=== PATIENT | female | born 1940 | race Caucasian/White ===

== ENCOUNTER → 2017-08-26 | Outpatient (CLI) | payer MEDICARE, BC ==
[~2017-08-26] MED LIST: CARDIZEM LA240 MG PO; HYZAAR 50-12.51 EACH PO; NEXIUM20 M1 PO; ZOCOR10 MG PO
--- NOTE | 2017-08-26 08:38 | Diagnostic Imaging Report ---
CORRECTION Corrected on: 08/26/2017; Dictated by: Todd Navarro M.D. on 08/26/2017 at 8:41 Electronically approved by: Todd Navarro M.D. on 08/26/2017 at 8:41 PROCEDURE:US RETROPERITONEAL ( KIDNEY ). COMPARISON:Patients [facility], [place], US RETROPERITONEAL ( KIDNEY )., 08/25/2016, 8:14. Patients [facility], [place], US RETROPERITONEAL ( KIDNEY )., 01/10/2016, 8:20. Patients [facility], [place], US RETROPERITONEAL ( KIDNEY )., 12/04/2014, 8:07. INDICATIONS:Cyst Of Kidney TECHNIQUE: Perez scale color Doppler ultrasound FINDINGS: Right: 10 x 4.8 x 4.7 cm. Cortical thickness 1.2 cm. Left: 10.6 x 5.9 x 5.1 cm. Cortical thickness 1.1 cm. Both kidneys demonstrate mildly increased echogenicity consistent with chronic renal disease. No mass or stone. No hydronephrosis. Simple cyst: Right anechoic 1.2 x 1.1 x 1.2 cm (previously 0.9 x 0.7 x 0.9 cm) Left anechoic 1.1 x 1.3 x 1.3 cm (previously 1.3 x 1.2 x 1.6 cm) Survey views of the urinary bladder are normal. Patent ureters. CONCLUSION: 1. Left renal cyst continues to decrease in size. 2. Right renal cyst is stable given differences in technique. Dictated by: Todd Navarro M.D. on 08/26/2017 at 8:40 Electronically approved by: Todd Navarro M.D. on 08/26/2017 at 8:40
== END ==
LOC: US 07:30
PROVIDERS: ATTEND Urology
DX: N28.1 Cyst of kidney, acquired (principal)
CPT/HCPCS: 76770

== ENCOUNTER → 2018-08-30 | Outpatient (CLI) | payer MEDICARE, BC ==
--- NOTE | 2018-08-30 11:16 | Diagnostic Imaging Report ---
Renal ultrasound. History: Renal cyst Comparison: 08/26/2017 Discussion: Transverse and longitudinal images of the kidneys were obtained demonstrating normal renal sizes and echogenicities. There is no evidence of hydronephrosis, mass or renal calculus. The right kidney measures 9.5 x 4.9 x 4.0 cm and the left kidney measures 10.8 x 5.0 x 4.3 cm. Maximal cortical thickness on the left is 1.8 cm and on the right 1.6 cm. There is a 1.9 cm lower pole right renal cyst and a 1.3 cm upper pole left renal cyst. The urinary bladder is unremarkable with an estimated volume of 69.2 cc. There is no evidence of free fluid. Incidental notice is made of stones within the gallbladder. IMPRESSION: Bilateral renal cysts. Signed by: Dr. Carrillo Chilel DO on 08/30/2018 11:12 AM
== END ==
LOC: US 07:38
PROVIDERS: ATTEND Urology
DX: N28.1 Cyst of kidney, acquired (principal)
CPT/HCPCS: 76770

== ENCOUNTER → 2020-07-31 | Outpatient (CLI) | payer MEDICARE, BC | LOC: US 09:35 | PROVIDERS: ATTEND Urology | DX: N28.1 Cyst of kidney, acquired (principal) | CPT/HCPCS: 76770 ==

== ENCOUNTER → 2021-09-09 | Outpatient (CLI) | payer MEDICARE, BC | LOC: US 07:35 | PROVIDERS: ATTEND Urology | DX: N28.1 Cyst of kidney, acquired (principal) | CPT/HCPCS: 76770 ==

== ENCOUNTER → 2022-07-24 | Outpatient (CLI) | payer MEDICARE, BC | LOC: US 10:44 | PROVIDERS: ATTEND Urology | DX: Z09 Encounter for follow-up examination after completed treatment for conditions other than malignant neoplasm (principal); N28.1 Cyst of kidney, acquired | CPT/HCPCS: 76770 ==

== ENCOUNTER 2024-05-12 08:00 | Outpatient (RCR) | payer MEDICARE, BC | END 2024-05-13 | LOC: PT 08:00 | PROVIDERS: ATTEND Family Medicine | DX: M19.071 Primary osteoarthritis, right ankle and foot (principal) ==

== ENCOUNTER 2024-06-02 09:00 | Outpatient (RCR) | payer MEDICARE, BC | END 2024-06-13 | LOC: PT 09:00 | PROVIDERS: ATTEND Family Medicine | DX: M19.071 Primary osteoarthritis, right ankle and foot (principal) ==

== ENCOUNTER 2024-07-12 08:00 | Outpatient (RCR) | payer MEDICARE, BC | END 2024-07-13 | LOC: PT 08:00 | PROVIDERS: ATTEND Family Medicine | DX: M19.071 Primary osteoarthritis, right ankle and foot (principal) ==

== ENCOUNTER → 2024-07-27 | Outpatient (REF) | payer MEDICARE, BC | LOC: US 12:59 | PROVIDERS: ATTEND Urology | DX: N28.1 Cyst of kidney, acquired (principal); N39.0 Urinary tract infection, site not specified | CPT/HCPCS: 76770; 76857 ==